=== PATIENT | male | born 1945 | race Caucasian/White ===

== ENCOUNTER 2020-05-10 19:47 | Emergency (ER) | payer OTHER ==
[~2020-05-10] VITALS: Ht 177.8 cm; Wt 93.1 kg
[2020-05-10 20:03] VITALS: BP 148/85
[2020-05-10] MEDS ORDERED: OXYMETAZOLINE 0.05% NASAL SPRAY 30ML BOTTLE. NS ONE (20:15)
--- NOTE | 2020-05-10 20:44 | PHYS DOC ---
Past History Past Medical History: Hypertension Alcohol Use: None General Adult EDM: Chief Complaint: NOSEBLEED HPI: HPI: 74 old male presents with nosebleed that lasted for an hour. The patient has tried manual compression but after an hour became concerned and came in. He has had relatively frequent nosebleeds over the last several weeks always on the left side. He takes a baby aspirin daily because he has cardiac stents. He also has chronic sinusitis. Patient denies lightheadedness or dizziness. While he was sitting in the emergency room, he was able to get stop bleeding. Patient has not seen an ENT for this problem but has seen 1 in the past. Review of Systems: Review of Systems: Constitutional: Denies fever or chills Eyes: Denies change in visual acuity HENT: Nosebleed Respiratory: Denies cough or shortness of breath Cardiovascular: Denies chest pain or edema GI: Denies abdominal pain, nausea, vomiting, bloody stools or diarrhea : Denies dysuria Musculoskeletal: Denies back pain or joint pain Integument: Denies rash Neurologic: Denies headache, focal weakness or sensory changes Endocrine: Denies polyuria or polydipsia Lymphatic: Denies swollen glands Psychiatric: Denies depression or anxiety Heart Score: Risk Factors: Risk Factors: DM, Current or recent (<one month) smoker, HTN, HLP, family history of CAD, obesity. Risk Scores: Score 0 - 3: 2.5% MACE over next 6 weeks - Discharge Home Score 4 - 6: 20.3% MACE over next 6 weeks - Admit for Clinical Observation Score 7 - 10: 72.7% MACE over next 6 weeks - Early Invasive Strategies Current Medications: Current Meds: Current Medications Medications (Trade) Dose Ordered Sig/Ashley Start Time Stop Time Status Last Admin Dose Admin Oxymetazoline HCl (Afrin) 2 spray 1X ONCE 05/10/20 20:15 05/10/20 20:18 DC Allergies: Allergies: Allergies Coded Allergies Type Severity Reaction Last Updated Verified Sulfa (Sulfonamide Antibiotics) Allergy Mild Hives 05/10/20 Yes Physical Exam: PE: Constitutional: Well developed, well nourished, no acute distress, non-toxic appearance. [] HENT: Normocephalic, atraumatic, bilateral external ears normal, oropharynx moist, no oral exudates, nose with dried blood in the left nare. No active bleeding. [] Eyes: PERRLA, EOMI, conjunctiva normal, no discharge. [] Neck: Normal range of motion, no tenderness, supple, no stridor. [] Cardiovascular: Heart rate regular rhythm, no murmur [] Lungs & Thorax: Bilateral breath sounds clear to auscultation [] Abdomen: Bowel sounds normal, soft, no tenderness, no masses, no pulsatile masses. [] Skin: Warm, dry, no erythema, no rash. [] Back: No tenderness, no CVA tenderness. [] Extremities: No tenderness, no cyanosis, no clubbing, ROM intact, no edema. [] Neurologic: Alert and oriented X 3, normal motor function, normal sensory function, no focal deficits noted. [] Psychologic: Affect normal, judgement normal, mood normal. [] Current Patient Data: Vital Signs: Vital Signs Date Time Temp Pulse Resp B/P (MAP) Pulse Ox O2 Delivery O2 Flow Rate FiO2 05/10/20 20:03 97.7 100 18 148/85 (106) 96 Room Air EKG: EKG: [] Radiology/Procedures: Radiology/Procedures: [] Course & Med Decision Making: Course & Med Decision Making Pertinent Labs and Imaging studies reviewed. (See chart for details) The patient's no stopped bleeding prior to our intervention. I discussed with the patient a strategy using Afrin and compression. Patient states verbal understanding. He will make an appointment to see ENT as he may need a section cauterized. He is stable for discharge at this time. [] Dragon Disclaimer: Glenn Disclaimer: This electronic medical record was generated, in whole or in part, using a voice recognition dictation system. Departure Departure: Impression: Primary Impression: Nosebleed Disposition: HOME/RESIDENCE PRIOR TO ADM Condition: STABLE Referrals: YOLANDA JIANG (PCP) Patient Instructions: Nosebleed, [id number] Additional Instructions: When you have a nosebleed, put 2 sprays of Afrin in the bleeding side of your nose. Then compression nose for 5 minutes without letting go. SCARLETT CHO DO May 10, 2020 20:44
== END 2020-05-10 20:47 | disposition home or self-care (01) ==
LOC: ER 19:47
DX: R04.0 Epistaxis (principal); I10 Essential (primary) hypertension; Z79.82 Long term (current) use of aspirin; Z88.2 Allergy status to sulfonamides
CPT/HCPCS: 99281; 99282